=== PATIENT | female | born 1995 | race Two or more races ===

== ENCOUNTER 2022-12-05 21:00 | Emergency (ER) | payer OTHER ==
[~2022-12-05] VITALS: Ht 152.4 cm; Wt 85.3 kg
== END 2022-12-06 14:15 | disposition home or self-care (01) ==
LOC: ER 21:00
DX: O20.9 Hemorrhage in early pregnancy, unspecified (principal); Z3A.08 8 weeks gestation of pregnancy

== ENCOUNTER 2022-12-09 06:34 | Day surgery (SDC) | payer OTHER ==
[~2022-12-09] VITALS: Ht 152.4 cm; Wt 84.8 kg
[2022-12-09] MEDS ORDERED: PROGESTERONE200 MG (08:05)
[2022-12-09] MEDS ORDERED: RHOGAM ULTR1500 UNIT IM (14:59)
== END 2022-12-09 19:30 | disposition home or self-care (01) ==
LOC: ER 06:34 → O/R 06:34 → CIR.AMB 06:34 → O/R 19:30 → CIR.AMB 19:30
PROVIDERS: ATTEND General Practice
DX: O03.4 Incomplete spontaneous abortion without complication (principal); O72.2 Delayed and secondary postpartum hemorrhage; O03.1 Delayed or excessive hemorrhage following incomplete spontaneous abortion; Z20.822 Contact with and (suspected) exposure to COVID-19

== ENCOUNTER 2023-06-04 08:24 | Emergency (ER) | payer OTHER ==
[~2023-06-04] VITALS: Ht 167.6 cm; Wt 81.6 kg
[~2023-06-04 08:24] MED LIST: PROGESTERONE200 MG; RHOGAM ULTR1500 UNIT IM
[2023-06-04] MEDS ORDERED: PROMETRIUM200 MG PO (13:05)
[2023-06-04] MEDS ORDERED: RHOGAM ULTR1500 UNIT IM (13:05)
[2023-06-07] MEDS ORDERED: PROGESTERONE200 MG (16:17)
== END 2023-06-04 16:18 | disposition home or self-care (01) ==
LOC: ER 08:24
PROVIDERS: Emergency Medicine
DX: O20.0 Threatened abortion (principal); Z3A.01 Less than 8 weeks gestation of pregnancy; Z88.8 Allergy status to other drugs, medicaments and biological substances; Z20.822 Contact with and (suspected) exposure to COVID-19

== ENCOUNTER → 2023-06-07 | Day surgery (SDC) | payer OTHER ==
[~2023-06-07] VITALS: Ht 152.4 cm; Wt 84.8 kg
[~2023-06-07] MED LIST changes: +PROMETRIUM200 MG PO
--- NOTE | 2023-06-07 11:54 | NUR ---
PACIENTE ALERTA Y ORIENTADA X 3 REFIERE SANGRADO VAGINA TIENE [address] MICKEY RUFF LA ENVIO A ER PARA ADM.
== END | disposition home or self-care (01) ==
LOC: ER 11:31 → SEC-K 13:27 → CIR.AMB 13:27 → EDSTATUS 15:00 → O/R 16:08 → SEC-K 16:08 → O/R 22:45
PROVIDERS: Emergency Medicine; ATTEND Emergency Medicine
DX: O03.4 Incomplete spontaneous abortion without complication (principal); O72.2 Delayed and secondary postpartum hemorrhage; Z20.822 Contact with and (suspected) exposure to COVID-19